=== PATIENT | female | born 1960 | race Caucasian/White ===

== ENCOUNTER 2019-12-08 16:07 | Outpatient (REF) | payer OTHER, SELFPAY ==
--- NOTE | 2019-12-08 16:11 | MM_ITS ---
EXAMINATION: MM SCREENING DIGITAL BREAST TOMOSYNTHESIS, BILATERAL CLINICAL INFORMATION: Screening. Asymptomatic. The lifetime risk of breast cancer based on the Tyrer-Cuzick Model is 10.4%. COMPARISON: Mammography: October 17, 2018 and studies dating back to September 28, 2009 TECHNIQUE: Digital breast tomosynthesis is performed in both the craniocaudal and mediolateral oblique views along with computer-aided detection (CAD). Synthesized 2D images are generated from the tomosynthesis. FINDINGS: The breasts are heterogeneously dense, which may obscure small masses (ACR BI-RADS breast composition Category c). There are no significant masses, abnormal calcifications, or other abnormalities. MM/MM tomosynthesis screening BI IMPRESSION: There are no significant changes from prior study. ASSESSMENT: BI-RADS 1: Negative RECOMMENDATION: Routine annual mammography screening. This patient's information was entered into a reminder system with a target due date for their next mammogram.
== END 2019-12-08 16:08 | disposition home or self-care (01) ==
LOC: HO.MAMMO 16:07
PROVIDERS: PCP Internal Medicine; Visit Provider Internal Medicine
DX: Z12.31 Encounter for screening mammogram for malignant neoplasm of breast (principal)
CPT/HCPCS: 77063; 77067

== ENCOUNTER 2021-02-24 09:42 | Outpatient (REF) | payer OTHER, SELFPAY ==
--- NOTE | ~2021-02-24 | MM_ITS ---
EXAMINATION: MM SCREENING DIGITAL BREAST TOMOSYNTHESIS, BILATERAL CLINICAL INFORMATION: Screening. Asymptomatic. The lifetime risk of breast cancer based on the Tyrer-Cuzick Model is 15%. COMPARISON: Mammography: 12/08/2019, 10/17/2018, 10/08/2017 TECHNIQUE: Digital breast tomosynthesis is performed in both the craniocaudal and mediolateral oblique views along with computer-aided detection (CAD). Synthesized 2D images are generated from the tomosynthesis. FINDINGS: The breasts are heterogeneously dense, which may obscure small masses (ACR BI-RADS breast composition Category c). Parenchymal pattern is similar to prior studies. Breast tissue composition borders on average fibroglandular. Nodular asymmetry mid inner left breast on CC view is stable there is no developing density or interval mass or architectural abnormality in either breast. No abnormal calcifications the axilla and skin contours are unremarkable. No significant changes. MM/MM tomosynthesis screening BI IMPRESSION: No mammographic evidence of malignancy. ASSESSMENT: BI-RADS 2: Benign RECOMMENDATION: Routine annual mammography screening. This patient's information was entered into a reminder system with a target due date for their next mammogram.
== END 2021-02-24 09:43 | disposition home or self-care (01) ==
LOC: HO.MAMMO 09:42
PROVIDERS: Visit Provider Internal Medicine
DX: Z12.31 Encounter for screening mammogram for malignant neoplasm of breast (principal)
CPT/HCPCS: 77063; 77067

== ENCOUNTER 2021-10-29 15:10 | Outpatient (REF) | payer OTHER, SELFPAY ==
--- NOTE | ~2021-10-29 | US_ITS ---
EXAMINATION: US PELVIS CLINICAL INFORMATION: Pelvic pain. COMPARISON: None TECHNIQUE: Ultrasound of the pelvis is performed using both transabdominal and transvaginal transducers along with Doppler. Transvaginal imaging is performed due to inadequate visualization transabdominally. FINDINGS: UTERUS: The uterus is anteverted, anteflexed and measures 7.52 cm in length, 3.18 cm in AP and 3.8 cm in transverse dimension. The double wall endometrial thickness is 0.34 cm. The uterus is smooth in contour and has normal myometrial echogenicity. No visible fibroid. ADNEXA: Both ovaries are visualized. There is normal color flow to the adnexa. There is no ovarian torsion. There is no pelvic ascites or fluid collection. Right ovary measures 1.67 x 0.95 x 1.58 cm and volume 1.31 mL. Left ovary measures 2.04 x 1.98 x 1.34 cm and volume 2.83 mL. There is an anechoic cyst with septation measuring 0.63 x 0.74 x 0.59 cm. US/US pelvic and transvaginal IMPRESSION: Complex cyst left ovary. Right ovary and the uterus is unremarkable.
== END 2021-10-29 15:11 | disposition home or self-care (01) ==
LOC: HO.HMGCX 15:10
PROVIDERS: Visit Provider Registered Nurse Community Health
DX: R10.2 Pelvic and perineal pain (principal)
CPT/HCPCS: 76830; 76856

== ENCOUNTER 2022-03-16 09:58 | Outpatient (REF) | payer OTHER, SELFPAY ==
--- NOTE | ~2022-03-16 | MM_ITS ---
EXAMINATION: MM SCREENING DIGITAL BREAST TOMOSYNTHESIS, BILATERAL CLINICAL INFORMATION: Screening. Asymptomatic. The lifetime risk of breast cancer based on the Tyrer-Cuzick Model is 9.0%. COMPARISON: Mammography: 02/24/2021 and studies going back to 01/07/2012. TECHNIQUE: Digital breast tomosynthesis is performed in both the craniocaudal and mediolateral oblique views along with computer-aided detection (CAD). Synthesized 2D images are generated from the tomosynthesis. FINDINGS: The breasts are heterogeneously dense, which may obscure small masses (ACR BI-RADS breast composition Category c). There is a stable parenchymal pattern of the right breast with no new abnormal dominant mass or suspicious grouping of microcalcifications. Within the deep upper outer aspect of the left breast, there is an approximately 11 x 9 x 7 mm circumscribed density, approximately 6 cm from the nipple for which spot compression view and ultrasound is recommended. About the anterior inferior aspect of the left breast, there is a 6 x 6 mm circumscribed density for which ultrasound is recommended. MM/MM tomosynthesis screening BI IMPRESSION: Two left breast lesions for further evaluation as described. ASSESSMENT: BI-RADS 0: Incomplete - Need additional imaging evaluation. RECOMMENDATION: 1. Additional views of the left breast. 2. Targeted ultrasound if warranted after review of the additional views. 3. Radiology department staff will contact the patient for additional imaging. This patient's information was entered into a reminder system with a target due date for their next mammogram.
== END 2022-03-16 09:59 | disposition home or self-care (01) ==
LOC: HO.MAMMO 09:58
PROVIDERS: Visit Provider Internal Medicine
DX: Z12.31 Encounter for screening mammogram for malignant neoplasm of breast (principal)
CPT/HCPCS: 77063; 77067

== ENCOUNTER 2022-04-16 14:34 | Outpatient (REF) | payer OTHER, SELFPAY ==
--- NOTE | ~2022-04-16 | MM_ITS ---
EXAMINATION: MM DIAGNOSTIC DIGITAL BREAST TOMOSYNTHESIS, LEFT US DIAGNOSTIC ULTRASOUND BREAST, LEFT CLINICAL INFORMATION: Recall from screening for circumscribed partially obscured nodule posterior upper outer left breast and anterior 5:00 left breast. TC score 9%. COMPARISON: Prior mammography exams, most recent 03/16/2022. TECHNIQUE: Digital breast tomosynthesis is performed. 2D images are generated from the tomosynthesis. The following views are obtained: Spot CC, spot ML. Ultrasound left breast is performed using grayscale imaging and color Doppler without and with harmonics. Imaging is targeted to the upper outer and lower outer quadrants. FINDINGS: Mammography: The breasts are heterogeneously dense, which may obscure small masses (ACR BI-RADS breast composition Category c). The additional views demonstrate a benign-appearing smooth partly obscured nodule upper outer quadrant measuring approximately 1 cm in greatest dimension. There is a small adjacent satellite nodule. No architectural abnormality. In addition, there is a benign-appearing circumscribed nodule anterior 5:30 position measuring approximately 0.6 cm in greatest dimension. No architectural abnormality. Ultrasound: There is a simple cyst 2:30 position 7 cm from nipple measuring approximately 0.9 x 0.5 cm. A tiny adjacent satellite simple cyst just under 3 mm present. There is increased through-transmission of sound circumscribed margins and no associated color flow. These correspond to the nodularity mid to posterior upper outer quadrant on mammography. Additional imaging lower outer quadrant demonstrates 0.5 cm simple anechoic cyst 5:00 position measuring 0.6 cm in greatest dimension. Margins are circumscribed and there is increased through-transmission of sound and no color flow. 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 Management: Summary results shared with patient at time of visit. Management plan is for 6-month follow-up left mammography to reassess the benign-appearing mildly complicated cyst likely related to apocrine metaplasia anterior lower outer quadrant. MM/MM tomosynthesis added views L IMPRESSION: 1. Benign simple cysts mid to posterior upper outer quadrant, 0.9 cm, and anterior lower outer left breast, 0.6 cm. 2. 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 ASSESSMENT: BI-RADS 3: Probably Benign RECOMMENDATION: Targeted left breast ultrasound in 6 months. This patient's information was entered into a reminder system with a target due date for their next mammogram.
== END 2022-04-16 14:35 | disposition home or self-care (01) ==
LOC: HO.MAMMO 14:34
PROVIDERS: PCP Internal Medicine; Visit Provider Internal Medicine
DX: N63.11 Unspecified lump in the right breast, upper outer quadrant (principal); N63.14 Unspecified lump in the right breast, lower inner quadrant
CPT/HCPCS: 76642; 77061; 77065

== ENCOUNTER 2022-05-09 15:32 | Outpatient (REF) | payer OTHER, SELFPAY ==
--- NOTE | ~2022-05-09 | XR_ITS ---
EXAMINATION: XR FEMUR, LEFT CLINICAL INFORMATION: Left posterior thigh pain. COMPARISON: None available. TECHNIQUE: Left femur is imaged in 4 views. FINDINGS: Normal bony mineralization. No fracture, dislocation, destructive process. No suprapatellar effusion. Hoffa's fat pad appears normal. The left hip joint shows no narrowing or erosive change. There is whiskering from the lateral left ilium. The left SI joint is unremarkable. There is borderline degenerative change pubic symphysis. Oval mineralization 0.8 cm adjacent to the left ischial tuberosity. There is no periostitis or erosive change. The calcification is likely associated with calcific tendinosis in region of the hamstring. XR/XR femur LT 2V IMPRESSION: -Oval mineralization 0.8 cm adjacent to left ischial tuberosity, likely related to calcific tendinosis left hamstring. -Normal femur. Unremarkable left hip joint.
--- NOTE | ~2022-05-09 | US_ITS ---
EXAMINATION: US VENOUS ULTRASOUND WITH DOPPLER LOWER EXTREMITY, LEFT CLINICAL INFORMATION: Pain left leg. Assess for occult DVT. COMPARISON: None available. TECHNIQUE: Ultrasound of the deep veins is performed from the hip to the calf with compression sonography and color and pulse Doppler assessment. Spectral analysis with color-flow imaging is performed. FINDINGS: There is normal venous compression and respiratory variation and augmented flow. The visualized common femoral vein, superficial femoral vein, profunda femoral vein, popliteal vein, and the trifurcation region shows no evidence of deep venous thrombosis. No visible popliteal fossa cyst. US/US venous duplex LE LT IMPRESSION: No DVT demonstrated in the left lower extremity.
--- NOTE | ~2022-05-09 | XR_ITS ---
EXAMINATION: XR ELBOW, LEFT CLINICAL INFORMATION: Left elbow pain. COMPARISON: None available. TECHNIQUE: Left elbow is imaged in 3 views. FINDINGS: Normal bony mineralization. No fracture, dislocation, or arthropathy. No joint narrowing or erosive change or elbow capsular effusion. There is spurring from the epicondyles, slightly greater on the medial side. Punctate olecranon spur also noted. XR/XR elbow LT min 3V IMPRESSION: -No joint narrowing, erosive change, or capsular effusion. -Spurring medial and lateral epicondyles. Tiny olecranon spur.
== END 2022-05-09 15:33 | disposition home or self-care (01) ==
LOC: HO.US 15:32
PROVIDERS: PCP Internal Medicine; Visit Provider Emergency Medicine
DX: M79.652 Pain in left thigh (principal); M25.522 Pain in left elbow
CPT/HCPCS: 73080; 73552; 93971

== ENCOUNTER 2022-10-22 14:52 | Outpatient (REF) | payer SELFPAY ==
--- NOTE | ~2022-10-22 | US_ITS ---
EXAMINATION: US DIAGNOSTIC ULTRASOUND BREAST, LEFT CLINICAL INFORMATION: 6 month follow-up mildly complicated cyst left breast 5:00 axis, 3 cm from the nipple.. COMPARISON: 04/16/2022. TECHNIQUE: Ultrasound of the breast is performed with real-time tejada scale imaging and color Doppler. Attention was paid to the 5:00 axis. FINDINGS: There is a stable and unchanged oval circumscribed nonvascular mildly complicated cyst with low-level internal echoes, good through transmission, measuring a stable 5 x 4 x 4 mm. In addition there is a slightly larger simple cyst more laterally, also unchanged. Results were discussed with the patient at time of visit. US/US breast LT limited mamm only IMPRESSION: Stable and unchanged almost certainly benign mildly complicated cyst measuring 5 x 4 x 4 mm in the left breast at the 5:00 axis, 3 cm from the nipple. To be cautious, an additional 6 month interval follow-up targeted left ultrasound is recommended when the patient is due for bilateral mammography. ASSESSMENT: BI-RADS 3: Probably Benign RECOMMENDATION: Diagnostic left targeted ultrasound in 6 months.
== END 2022-10-22 14:53 | disposition home or self-care (01) ==
LOC: HO.MAMMO 14:52
PROVIDERS: Visit Provider Internal Medicine
DX: N60.02 Solitary cyst of left breast (principal)
CPT/HCPCS: 76642

== ENCOUNTER → 2022-10-22 15:30 | Outpatient (BNV) | payer SELFPAY | PROVIDERS: Visit Provider Radiology Diagnostic Radiology | DX: N60.02 Solitary cyst of left breast (principal) | CPT/HCPCS: 76642 ==

== ENCOUNTER 2023-05-09 14:52 | Outpatient (REF) | payer MEDICAID, SELFPAY ==
--- NOTE | ~2023-05-09 | MM_ITS ---
EXAMINATION: MM DIAGNOSTIC DIGITAL BREAST TOMOSYNTHESIS, BILATERAL US BREAST LIMITED, LEFT MAMMOGRAPHY: CLINICAL INFORMATION: Patient here for screening bilaterally. Also, six-month follow-up left ultrasound for probably benign mildly complicated cyst measuring 5 mm in the left breast 5:00 axis, 3 cm from the nipple. COMPARISON: Mammography: 04/16/2022, 03/16/2022, 02/24/2021, 12/08/2019, and dating back to 2017. TECHNIQUE: Digital breast tomosynthesis is performed in both the craniocaudal and mediolateral oblique views along with computer-aided detection (CAD). Synthesized 2D images are generated from the tomosynthesis. FINDINGS: The breasts are heterogeneously dense, which may obscure small masses (ACR BI-RADS breast composition Category c). Again noted, there are bilateral numerous oval and round circumscribed masses, similar to the prior examinations, consistent with waxing and waning cysts. The most prominent is on the left breast at 3:00, measuring approximately 1 cm in diameter. This is unchanged. The oval 5 mm mass at 5:00 axis left breast is also unchanged, known to represent a complicated cyst. This will be evaluated by ultrasound for the second time. Otherwise, There are no suspicious masses, suspicious grouped calcifications, or areas of architectural distortion in either breast. The parenchymal pattern is stable from prior exams. There are no skin or axillary abnormalities. ULTRASOUND: CLINICAL INFORMATION: 6 month Follow-up probably benign mildly complicated cyst left breast 5:00 axis, 3 cm from the nipple. COMPARISON: 10/22/2022. TECHNIQUE: Targeted sonographic evaluation was performed using a high frequency linear transducer. Attention was given to the 5:00 axis left breast. Selected archived documentation. FINDINGS: LEFT BREAST: Again demonstrated within the left breast at 5:00 axis, 2 cm from the nipple, is a minimally complicated cyst measuring 6 x 4 x 5 mm, unchanged allowing for differences in measuring technique. There are a few specular echoes internally. It is otherwise simple in appearance. It is probably benign. There are abutting adjacent more superomedial simple cysts. These are benign. There are no suspicious findings left breast. MM/MM tomosynthesis diagnostic BI IMPRESSION: -There are no findings in either breast suspicious for malignancy. -There are stable waxing and waning cysts in both breasts. Left breast ultrasound demonstrates no significant interval change in the 6 x 4 x 5 mm minimally complicated cyst at 5:00, 3 cm from the nipple. We will follow this in one year to assure 2 year stability and to establish benignity. OVERALL ASSESSMENT: Mammography: BI-RADS 3 - Probably benign finding(s) - 12 month follow-up suggested Ultrasound: BI-RADS 3 - Probably benign finding(s) - 12 month follow-up suggested RECOMMENDATION: 12 month diagnostic follow up This patient's information was entered into a reminder system with a target due date for their next mammogram.
== END 2023-05-09 14:53 | disposition home or self-care (01) ==
LOC: HO.MAMMO 14:52
PROVIDERS: PCP Internal Medicine; Visit Provider Internal Medicine
DX: R92.2 Inconclusive mammogram (principal)
CPT/HCPCS: 76642; 77062; 77066

== ENCOUNTER → 2023-05-09 15:00 | Outpatient (BNV) | payer MEDICAID, SELFPAY | PROVIDERS: PCP Internal Medicine; Visit Provider Radiology Diagnostic Radiology | DX: N60.11 Diffuse cystic mastopathy of right breast (principal); N60.12 Diffuse cystic mastopathy of left breast; R92.333 Mammographic heterogeneous density, bilateral breasts | CPT/HCPCS: 76642; 77062; 77066 ==

== ENCOUNTER 2023-05-14 14:07 | Outpatient (REF) | payer MEDICAID, SELFPAY ==
[2023-05-19 22:33] LABS: C. trachomatis RNA TMA NOT DETECTED (NOT DETECTED); N. gonorrhoeae RNA TMA NOT DETECTED (NOT DETECTED); Trichomonas (NAAT) NOT DETECTED (NOT DETECTED)
[2023-05-29 23:29] LABS: HPV mRNA E6/E7 rflx Not Detected (Not Detected)
== END 2023-05-14 14:08 | disposition home or self-care (01) ==
LOC: HO.HHCLNP 14:07
PROVIDERS: Visit Provider Internal Medicine
DX: Z12.4 Encounter for screening for malignant neoplasm of cervix (principal); Z11.51 Encounter for screening for human papillomavirus (HPV)
CPT/HCPCS: 36415; 87491; 87591; 87624; 87661; 88142

== ENCOUNTER 2023-05-27 08:19 | Outpatient (REF) | payer MEDICAID, SELFPAY ==
[2023-05-27 09:10] LABS: Estimated Average Glucose 117 mg/dL; Hemoglobin A1c % 5.7 % (<6.0)
[2023-05-27 10:12] LABS: Anion Gap 12 (12-20); Blood Urea Nitrogen 13 mg/dL (9-16); Calcium 9.5 mg/dL (8.4-10.2); Carbon Dioxide 26 mmol/L (22-29); Chloride 108 mmol/L (96-108); Cholesterol 215 mg/dL (<200); Estimated Glomerular Filt Rate > 60; Glucose Random 96 mg/dL (60-115); HDL Cholesterol 53 mg/dL (>40); LDL Cholesterol Calculated 129 mg/dL (<100); Potassium 3.9 mmol/L (3.3-5.1); Sodium 142 mmol/L (135-145); Triglycerides 169 mg/dL (<150)
== END 2023-05-27 08:20 | disposition home or self-care (01) ==
LOC: HO.LAB 08:19
PROVIDERS: PCP Internal Medicine; Visit Provider Internal Medicine
DX: I10 Essential (primary) hypertension (principal)
CPT/HCPCS: 36415; 80048; 80061; 83036

== ENCOUNTER 2023-11-10 09:36 | Outpatient (REF) | payer MEDICAID, SELFPAY ==
--- NOTE | ~2023-11-10 | MM_ITS ---
EXAMINATION: MM DIAGNOSTIC DIGITAL BREAST TOMOSYNTHESIS, LEFT US BREAST LIMITED, LEFT MAMMOGRAPHY: CLINICAL INFORMATION: Patient states palpable abnormality 2-3:00 left breast, although states has currently resolved. Previous ultrasound left breast 04/16/2022 demonstrated a 2:00 axis bilobed simple cyst in this region. COMPARISON: Mammography: 11/10/2023, 05/09/2023, 04/16/2022, 04/13/2022, and exams dating back to 2014. 10/22/2022, 10/22/2022, 05/09/2023 left breast ultrasound TECHNIQUE: Digital left breast tomosynthesis is performed in both the craniocaudal and mediolateral oblique views along with computer-aided detection (CAD). Synthesized 2D images are generated from the tomosynthesis. FINDINGS: The breasts are heterogeneously dense, which may obscure small masses (ACR BI-RADS breast composition Category c). Mammography demonstrates palpable marker placed in the approximate 2-3 o'clock axis left breast, marking the palpable area of concern. Directly subjacent is a circumscribed mass in the 2-3 o'clock axis, similar but slightly smaller when compared with prior exams. This will be again evaluated with ultrasound. There are a few additional small circumscribed masses in the left breast, of which the 5:00 axis anterior circumscribed mass represents a complicated cyst which is being followed (diagnostic ultrasound due in April,). It is stable mammographically. There are no suspicious abnormalities in the left breast. ULTRASOUND: CLINICAL INFORMATION: As above. Palpable focus concern left breast 2-3 o'clock axis. COMPARISON: As above. TECHNIQUE: Targeted sonographic evaluation left breast was performed using a high frequency linear transducer. Attention to the upper outer quadrant was given to include the region of palpable concern. Selected archived documentation. FINDINGS: LEFT BREAST: In the location of the previously seen bilobed simple cyst, 3:00 axis, 6 cm from the nipple, there is now a unilocular simple cyst measuring 0.6 x 0.3 x 0.5 cm. This appears to correlate with the palpable focus of concern and is benign. There are no suspicious abnormalities. MM/MM tomosynthesis diagnostic LT IMPRESSION: -There are no findings suspicious for malignancy left breast. -There are stable benign findings. -Palpable focus correlates with a benign 6 mm simple cyst at the 3:00 axis, 6 cm from the nipple. -Recommend the patient resume routine annual screening mammography, in April 2024. At that time the patient will be due for one year ultrasound follow-up of the left breast 5:00 complicated cyst. OVERALL ASSESSMENT: Mammography: BI-RADS 2 - Benign Findings Ultrasound: BI-RADS 2 - Benign Findings RECOMMENDATION: 1 year F/U This patient's information was entered into a reminder system with a target due date for their next mammogram. Electronically signed by: Adalid Angeles MD 11/10/2023 11:48 AM EDT
== END 2023-11-10 09:37 | disposition home or self-care (01) ==
LOC: HO.MAMMO 09:36
PROVIDERS: PCP Internal Medicine; Visit Provider Internal Medicine
DX: N64.4 Mastodynia (principal)
CPT/HCPCS: 76642; 77061; 77065

== ENCOUNTER → 2023-11-10 11:00 | Outpatient (BNV) | payer MEDICAID, SELFPAY | PROVIDERS: PCP Internal Medicine; Visit Provider Radiology Diagnostic Radiology | DX: N63.25 Unspecified lump in the left breast, overlapping quadrants (principal) | CPT/HCPCS: 76642; 77061; 77065 ==

== ENCOUNTER 2024-05-11 09:48 | Outpatient (REF) | payer MEDICAID, SELFPAY ==
--- NOTE | ~2024-05-11 | MM_ITS ---
EXAMINATION: MM DIAGNOSTIC DIGITAL BREAST TOMOSYNTHESIS, BILATERAL Limited left breast ultrasound. CLINICAL INFORMATION: 18 month follow-up for solid mass versus complicated cyst in the left breast on ultrasound at 5:00. COMPARISON: Mammography: Comparison is made with relevant prior exams. TECHNIQUE: Digital breast mammography with tomosynthesis is performed in both the craniocaudal and mediolateral oblique views along with computer-aided detection (CAD). FINDINGS: The breasts are heterogeneously dense, which may obscure small masses (ACR BI-RADS breast composition Category c). Bilateral circumscribed oval masses which wax and wane consistent with benign fibrocystic changes. No suspicious calcifications masses or other abnormal findings. Targeted color Doppler ultrasound scanning at 5:00 area today labeled 4:00 2 cm from nipple again demonstrates a hypoechoic oval circumscribed solid mass versus complicated cyst slightly decreased in size compared with priors today measuring 4 x 4 x 4 mm peripheral not significantly changed from the prior area at 5:00 2 cm from the nipple dating back to April 2022 more than 2 years and therefore benign. Results are provided to the patient at time of visit by the technologist. MM/MM tomosynthesis diagnostic BI IMPRESSION: Bilateral circumscribed oval masses which wax and wane consistent with benign fibrocystic changes. Solid mass versus complicated cyst at 5:00 today labeled 4:00 stable for more than 2 years and therefore benign. ASSESSMENT: BI-RADS BI-RADS 2 - Benign Findings RECOMMENDATION: 1 year F/U This patient's information was entered into a reminder system with a target due date for their next mammogram. Electronically signed by: Dilia Hernández DO 05/11/2024 11:13 AM EDT
--- OUTSIDE RECORDS SUMMARY | 2024-05-11 11:28 | XMS_ITS | Clinical Summary ---
Author Organization [employer] Address [address] [facility] [address] [place] [address] Care Team Providers Care Digital Solution Architect Name Role Phone Jinny Guzman MD Primary Care Provide r Allergies No known active allergies Medications omeprazole (PriLOSEC) [address] capsule Take 1 capsule by mouth. Everyday before a meal 7 Active ibuprofen 800 MG tablet Take 1 tablet by mouth every 8 (eight) hours. 7 Active acetaminophen (Tylenol 8 Hour) 650 MG ER tablet Take 2 tablets (1,300 mg) by mouth every 8 (eight) hours. 40 tablet 3 Active ibuprofen 400 MG tablet Take 1 tablet (400 mg) by mouth every 6 (six) hours if needed for moderate pain or fever for up to 30 doses. 30 tablet 3 Active Blood Pressure Monitor kitIndications:En counter for preventative adult health care examination Use as directed 3x/week 1 kit 3 Active [facility] D3 25 MCG (1000 UT) capsule TAKE 1 CAPSULE BY MOUTH EVERY DAY 30 capsule 3 3 Active amLODIPine (Norvasc) 2.5 MG tabletIndications :Primary hypertension TAKE 2 TABLETS BY MOUTH EVERY DAY IN THE MORNING 180 tablet 4 Active minoxidil (Loniten) 2.5 MG tablet Take 1 tablet (2.5 mg) by mouth Once per day. 30 tablet 11 4 08/06/19 25 Active atorvastatin (Lipitor) 20 MG tabletIndications :Primary hypertension Take 1 tablet (20 mg) by mouth Once per day. 30 tablet 11 4 11/25/19 25 Active ketoconazole (NIZOral) 2 % shampoo APPLY TOPICALLY TWICE A WEEK DIRECTED 120 mL 1 4 Active amLODIPine (Norvasc) 2.5 MG tabletIndications :Primary hypertension TAKE 2 TABLETS BY MOUTH EVERY DAY 180 tablet 1 5 Active Active Problems Problem Noted Date Diagnosed Date Benign paroxysmal positional vertigo due to bilateral vestibular disorder 11/25/2023 Right tennis elbow 08/26/2023 Vestibular disorder 08/26/2023 Encounter for Papanicolaou s mear for cervical cancer screening 05/14/2023 Assessment & Plan (05/14/2023 10:57 AM EDT): PAP smear and pelvic exam done Patient will be contacted with results Left elbow pain 06/24/2022 Assessment & Plan (11/25/2023 4:06 PM EDT): Referral will be provided Primary hypertension 06/24/2022 Assessment & Plan (11/25/2023 4:08 PM EDT): Maintenance: BMP: up to date Lipid Panel: up to date ASCVD Risk: 7.7% I will start her on atorvastatin 20mg daily EKG: Obtain baseline at f/u - Aerobic exercise to reduce BP. Initial goal of 30 min walk 3-5x/week. Increase as tolerated. - low-sodium diet (goal: <2g/day) and heart healthy diet such as DASH to reduce BP and prevent ASCVD. - Home BP monitoring 1-2 x day with goal of <140/90. - Seek immediate medical attention for chest pain, palpitations, SOB, syncope, or sudden changes in mental status. - Do not change or discontinue current prescriptions without first consulting health care provider Assessment & Plan (08/26/2023 2:22 PM EDT): - Aerobic exercise to reduce BP. Initial goal of 30 min walk 3-5x/week. Increase as tolerated. - low-sodium diet (goal: <2g/day) and heart healthy diet such as DASH to reduce BP and prevent ASCVD. - Home BP monitoring 1-2 x day with goal of <140/90. - Seek immediate medical attention for chest pain, palpitations, SOB, syncope, or sudden changes in mental status. - Do not change or discontinue current prescriptions without first consulting health care provider Assessment & Plan (05/14/2023 10:58 AM EDT): - Aerobic exercise to reduce BP. Initial goal of 30 min walk 3-5x/week. Increase as tolerated. - low-sodium diet (goal: <2g/day) and heart healthy diet such as DASH to reduce BP and prevent ASCVD. - Home BP monitoring 1-2 x day with goal of <140/90. - Seek immediate medical attention for chest pain, palpitations, SOB, syncope, or sudden changes in mental status. - Do not change or discontinue current prescriptions without first consulting health care provider Assessment & Plan (03/10/2023 4:49 PM EST): Maintenance: BMP: up to date Lipid Panel: up to date ASCVD Risk: Calculate pending updated labs - Aerobic exercise to reduce BP. Initial goal of 30 min walk 3-5x/week. Increase as tolerated. - low-sodium diet (goal: <2g/day) and heart healthy diet such as DASH to reduce BP and prevent ASCVD. - Home BP monitoring 1-2 x day with goal of <140/90. - Seek immediate medical attention for chest pain, palpitations, SOB, syncope, or sudden changes in mental status. - Do not change or discontinue current prescriptions without first consulting health care provider Assessment & Plan (06/24/2022 3:39 PM EDT): Maintenance: BMP: ordered today Lipid Panel: ordered today ASCVD Risk: Calculate pending updated labs EKG: Obtain baseline at f/u - Aerobic exercise to reduce BP. Initial goal of 30 min walk 3-5x/week. Increase as tolerated. - low-sodium diet (goal: <2g/day) and heart healthy diet such as DASH to reduce BP and prevent ASCVD. - Home BP monitoring 1-2 x day with goal of <140/90. - Seek immediate medical attention for chest pain, palpitations, SOB, syncope, or sudden changes in mental status. 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 Anxiety state 07/01/2011 Alopecia 07/01/2011 Encounters Date Type Department Care Team Description 05/11/2024 Orders Only [facility] [address] [place] [address] Jinny Guzman MD 04/29/2024 Outside Procedure [facility] [address] [place] [address] MartinezJamesn, OD Presbyopia (Primary Dx) 04/27/2024 1:15 PM EDT Office Visit [facility] [address] [place] [address] James Henriquezn, OD Hyperopia of both eyes (Primary Dx) 04/23/2024 Population Health Risk Score [facility] Department [address] [phone] Provider, Population Health Generic 04/08/2024 Refill [facility] [address] [place] [address] Jinny Guzman MD Primary hypertension 03/15/2024 Telephone [facility] [address] [place] [address] Sharda Benitez MA MAY RECALL from Last 3 Months Immunizations Name Administration Dates Next Due Tdap 09/05/2022 Zoster, Recombinant 05/12/2023,03/10/2023 Social History Tobacco Use Types Packs/Day Years Used Date Smoking Tobacco: Never Passive Smoke Exposure: Never Smokeless Tobacco: Never Tobacco Cessation:Counseling Given: Not Answered Alcohol Use Standard Drinks/Week Comments Never 0 (1 standard drink = 0.6 oz pur e alcohol) Depression Answer Date Recorded Patient Health Questionnaire-9 Score 0 08/26/2023 Patient Health Questionnaire-9 Score 0 08/26/2023 Last PHQ-9: Questionnaire Data Not on file 0 08/26/2023 Housing Stability Answer Date Recorded What is your housing situation today? I have maxine williamson 08/26/[address] you li ve. Do you have problems with any of the following? None of the above 08/26/2023 Food Insecurity Answer Date Recorded Within the past 12 months, y ou worried that your food would run out before you got money to buy more: Never True 08/26/2023 Within the past 12 months,th e food you bought just didn't last and you didn't have enough money to get more: Never True Transportation Answer Date Recorded In the past 12 months, has l ack of transportation kept you from medical appts, meetings, work or from getting things needed for daily living? No 08/26/2023 Utilities Answer Date Recorded In the past 12 months, has t he electric, gas, oil or water company threatened to shut off services in your home? No 08/26/2023 Depression Answer Date Recorded Patient Health Questionnaire-2 Score 0 08/26/2023 Internet Access Answer Date Recorded Internet Access Q1 No 10/13/2023 Internet Access Q2 I do not want or need it 03/2023 Comments Unknown Sex and Gender Information Value Date Recorded Sex Assigned at Female 12/10/2021 10:18 AM EDT Legal Sex Female 10:18 AM EDT Gender Identity Female 12/10/2021 10:18 AM EDT Sexual Orientation Choose not to disclose 2021 10:18 AM EDT Last Filed Vital Signs Vital Sign Reading Time Taken Comments Blood Pressure 129/73 11/25/2023 3:15 PM EDT Pulse 65 11/25/2023 3:15 PM EDT Temperature 36 ??C (96.8 ??F) 11/25/2023 3:15 PM EDT Respiratory Rate 16 11/25/2023 3:15 PM EDT Oxygen Saturation 100% 11/25/2023 3:15 PM EDT Inhaled Oxygen Concentration - - Weight 64 kg (141 lb) 11/25/2023 3:15 PM EDT Height 160 cm (5' 3 ) 11/25/2023 3:15 PM EDT Body Mass Index 24.98 11/25/2023 3:15 PM EDT Plan of Treatment Upcoming Encounters Date Type Department Care Team (Late st Contact Info) Description 05/11/2024 3:30 PM EDT Office Visit [facility] [address] [place] [address] Jinny Gumzan MD [address] [place] [address] Health Maintenance Due Date Last Done Comments CT Colonography 1960 Colonoscopy 1960 FIT 1960 FOBT 1960 HIV Screening 1960 Sigmoidoscopy 1960 Hepatitis C Screening 12/31/1977 Pneumococcal Vaccine: 50+ Years (1 of 1 - PCV) 12/31/2009 COVID-19 Vaccine ( season) 2023 06/19/2020, 05/25/2020 Influenza Vaccine (#1) 2023 Diabetes: Hemoglobin A1C 05/26/2024 05/27/2023, 03/13 Alcohol/Substance Use Screening 08/25/2024 08/26/2023 Depression Screening 08/25/2024 08/26/2023, 08/26/19 24 SDOH Screening 08/25/2024 08/26/2023 Diagnostic Breast Imaging 11/09/20242024, 11/10/2023, 11/10/2023, Additional history exists Mammogram 11/09/2024 05/11/2024, 10/13, 11/10/2023, Additional history exists Tobacco Screening 2025 01/02/2024 Colorectal Cancer Screening 04/01/2026 FIT DNA/Cologuard 04/01/2026 04/01/2023 Cervical Cancer Screening 05/13/2028 HPV/Cotest 05/13/2028 05/14/2023, 07/31/2018 Pap Smear 05/13/2028 05/14/2023, 04/0 04/2023, 08/02/2018 Lipid Panel 05/26/2028 05/27/2023, 03/26/2021 DTaP/Tdap/Td Vaccines (2 - Td or Tdap) 09/05/2032 09/05/2022 RSV Patients and Patients Aged 60 years or older (1 - 1-dose 75+ series) 12/31/2034 Zoster Vaccines Completed 05/12/2023, 03/10/2023 HIB Vaccines Aged Out No longer eligi ble based on patient's age to complete this topic HPV Vaccines Aged Out No longer eligi ble based on patient's age to complete this topic Hepatitis A Vaccines Aged Out No long er eligible based on patient's age to complete this topic Hepatitis B Vaccines Aged Out No long er eligible based on patient's age to complete this topic IPV Vaccines Aged Out No longer eligi ble based on patient's age to complete this topic Meningococcal Vaccine Aged Out No lex jacinta eligible based on patient's age to complete this topic RSV under 20 months Aged Out No longe r eligible based on patient's age to complete this topic Rotavirus Vaccines Aged Out No longer eligible based on patient's age to complete this topic Procedures Procedure Name Priority Date/Time Associated Diagnosis Comments BI MAMMOGRAM DIAGNOSTIC TOMOSYNTHESIS BILATERAL Routine 05/11/2024 10:00 AM EDT HEMOGLOBIN A1C Routine 05/27/2023 8:45 AM EDT Primary hypertension LIPID PANEL, STANDARD Routine 05/27/2023 8:45 AM EDT Primary hypertension IMAGE-GUIDED PAP W/AGE BASED SCR,W/CT/NG/TRICH Routine 05/14/2023 10:55 AM EDT Encounter for Papanicolaou smear for cervical cancer screening HPV MRNA E6/E7 REFLEX TO HPV 16, 18/45 Routine 05/14/2023 12:00 AM EDT LAB COLOGUARD?? COLON CANCER SCREEN Routine 04/01/2023 8:30 AM EST Colon cancer screening from Last 3 Months or Most Recently Relevant to Health Maintenance Results * BI Mammogram Diagnostic Tomosynthesis Bilateral (05/11/2024 10:00 AM EDT) Anatomical Region Laterality Modality Breast Bilateral Mammography 05/11/2024 10:0 0 AM EDT Narrative 05/11/2024 11:16 AM EDT ? [facility] ? [address] ?[place] [address] ?[phone] ? Mammography Report ? Signed ? Patient: Francis,Luz Maria ?MR#: [id number] ?? 08 ? : 1960 ?Acct:[id number] ? Age/Sex: 64 / F ?ADM Date: 05/11/24 ? Loc: HO.MAMMO ? Attending Dr: Jinny Dillard MD ? Ordering Physician: Jinny Guzman MD ?Results: ?? 2Benign Findings ? Date of Service: 05/11/24 ?Follow Up: 1 Year From Orig ?? inal Mammogram ? Procedure(s): MM tomosynthesis diagnostic BI ?? Accession Number(s): [id number] ? cc: Jinny Guzman MD ? EXAMINATION: ?? MM DIAGNOSTIC DIGITAL BREAST TOMOSYNTHESIS, BILATERAL ?? Limited left breast ultrasound. ? CLINICAL INFORMATION: ? 18 month follow-up for solid mass versus complicated cyst in the left ?? breast on ultrasound at 5:00. ? COMPARISON: ?? Mammography: Comparison is made with relevant prior exams. ? TECHNIQUE: ?? Digital breast mammography with tomosynthesis is performed in both the ?? craniocaudal and mediolateral oblique views along with computer-aided ?? detection (CAD). ? FINDINGS: ?? The breasts are heterogeneously dense, which may obscure small masses ?? (ACR BI-RADS breast composition Category c). ?? Bilateral circumscribed oval masses which wax and wane consistent with ?? benign fibrocystic changes. ?? No suspicious calcifications masses or other abnormal findings. ? Targeted color Doppler ultrasound scanning at 5:00 area today labeled ?? 4:00 2 cm from nipple again demonstrates a hypoechoic oval ?? circumscribed solid mass versus complicated cyst slightly decreased in ?? size compared with priors today measuring 4 x 4 x 4 mm peripheral not ?? significantly changed from the prior area at 5:00 2 cm from the nipple ?? dating back to April 2022 more than 2 years and therefore benign. ? Results are provided to the patient at time of visit by the ?? technologist. ? MM/MM tomosynthesis diagnostic BI ?? IMPRESSION: ?? Bilateral circumscribed oval masses which wax and wane consistent with ?? benign fibrocystic changes. ?? Solid mass versus complicated cyst at 5:00 today labeled 4:00 stable ?? for more than 2 years and therefore benign. ? ASSESSMENT: ? BI-RADS BI-RADS 2 - Benign Findings ? RECOMMENDATION: ?? 1 year F/U ? This patient's information was entered into a reminder system with a ?? target due date for their next mammogram. ? Electronically signed by: ??Dilia Hernández DO ??05/11/2024 11:13 AM EDT ?? RP ? Dictated By: ?Dilia Hernández DO ? Signed By: ?<Electronically signed by Dilia Hernández, DO in OV> ? 05/11/24 1113 ? DD/ 1000 ? TD/TT: 05/11/24 1019 ? Health Services Information Specialist: ? Procedure Note Barry Sullivan - 05/11/2024 [facility] [address] [place] [address] [place] [address] Mammography Report Signed Patient: Raleigh Blanco#: [id number] [birth year] : 1960Acct:[id number] Age/Sex: 64 / FADM Date: 05/11/24 Loc: HO.MAMMO Attending Dr: Jinny Dillard MD Ordering Physician: Jinny Guzman MDResults: 2Benign Findings Date of Service: 05/11/24Follow Up: 1 Year From [facility] Mammogram Procedure(s): MM tomosynthesis diagnostic BI Accession Number(s): [id number] cc: Jinny Guzman MD EXAMINATION: MM DIAGNOSTIC DIGITAL BREAST TOMOSYNTHESIS, BILATERAL Limited left breast ultrasound. CLINICAL INFORMATION: 18 month follow-up for solid mass versus complicated cyst in the left breast on ultrasound at 5:00. COMPARISON: Mammography: Comparison is made with relevant prior exams. TECHNIQUE: Digital breast mammography with tomosynthesis is performed in both the craniocaudal and mediolateral oblique views along with computer-aided detection (CAD). FINDINGS: The breasts are heterogeneously dense, which may obscure small masses (ACR BI-RADS breast composition Category c). Bilateral circumscribed oval masses which wax and wane consistent with benign fibrocystic changes. No suspicious calcifications masses or other abnormal findings. Targeted color Doppler ultrasound scanning at 5:00 area today labeled 4:00 2 cm from nipple again demonstrates a hypoechoic oval circumscribed solid mass versus complicated cyst slightly decreased in size compared with priors today measuring 4 x 4 x 4 mm peripheral not significantly changed from the prior area at 5:00 2 cm from the nipple dating back to April 2022 more than 2 years and therefore benign. Results are provided to the patient at time of visit by the technologist. MM/MM tomosynthesis diagnostic BI IMPRESSION: Bilateral circumscribed oval masses which wax and wane consistent with benign fibrocystic changes. Solid mass versus complicated cyst at 5:00 today labeled 4:00 stable for more than 2 years and therefore benign. ASSESSMENT: BI-RADS BI-RADS 2 - Benign Findings RECOMMENDATION: 1 year F/U This patient's information was entered into a reminder system with a target due date for their next mammogram. Electronically signed by: Dilia Hernández DO 05/11/2024 11:13 AM EDT Dictated By: Dilia Hernández DO Signed By: <Electronically signed by Dilia Hernández DO in OV> 05/11/24 1113 DD/ 1000 TD/TT: 05/11/24 1019 Health Services Information Specialist: us Jinny Dillard MD IMG BI PROCEDURES Fin al Result * Hemoglobin A1c (05/27/2023 8:45 AM EDT) Hemoglobin A1c 5.7 <6.0 % [facility] Comment:Hemoglobin A1C Refer ence Range Adults: 4.8 - 6.0 % Non diabetic: < 6.0 % Goal: < 7.0 %Additional Action Suggested: > 8.0 %Note: Hemoglobin A1c results are invalid for patients with abnormal amounts of HbF. Blood transfusions may impact the HbA1c concentration in the patient sample. Estimated Average Glucose 117 mg/dL [facility] Comment:eAG = Estimated ave rage glucose which is %A1C expressed asaverage glucose, using the formula of the B9Y-[id number] Glucose study (ADAG), Diabetes Care, Vol.31,#8,Sep. 2007 Blood Venous blood specimen / Unknown 05/27/2023 8:45 AM EDT 05/27/2023 8:45 AM EDT us Jinny Dillard MD LAB BLOOD ORDERABLES Final Result Performing Organization Address City/State/[facility] Co de Phone Number [facility] [address] [place] [phone] * (ABNORMAL) Lipid Panel, Standard (05/27/2023 8:45 AM EDT) Triglycerides 169(H) <150 mg/dL [facility] Comment:Desirable Triglyceri de: less than 150 mg/dLBorderline High Triglyceride 150-199 mg/dLHigh Triglyceride: 200-499 mg/dLVery High Triglyceride: greater than or equal to 5OO mg/dL Cholesterol 215(H) <200 mg/dL [facility] Comment:Desirable Cholestero l: less than 200 mg/dLBorderline High Cholesterol: 200-239 mg/dLHigh Cholesterol: greater than 239 mg/dL LDL Cholesterol Calculated 129(H) <100 mg/dL [facility] Comment:Desirable LDL: less than 100 mg/dLNear Optimal/Above Optimal LDL: 110- 129 mg/dLBorderline High LDL: 130-159 mg/dLHigh LDL: 160-189 mg/dLVery High LDL: greater than or equal to 190 mg/dL HDL Cholesterol 53 >40 mg/dL [facility] Comment:Desirable HDL: great er than 40 mg/dL Note: This HDL assay may give artificially low results in patients with liver disease. Blood Venous blood specimen / Unknown 05/27/2023 8:45 AM EDT 05/27/2023 8:45 AM EDT us Jinny Dillard MD LAB BLOOD ORDERABLES Final Result Performing Organization Address [facility] Co de Phone Number [facility] [address] [place] [address] [phone] * Image-Guided Pap with Age-Based Screening??with CT/NG,??Trichomonas (05/14/2023 10:55 AM EDT) Trichomonas (NAAT) NOT DETECTED NOT DETECTED [facility] Comment:The analytical perfo rmance characteristics of thisassay have been determined by [employer]. Themodifications have not been cleared or approved bythe FDA. This assay has been validated pursuant to theCLIA regulations and is used for clinical purposes.For additional information, please refer tohttp://education.5 CUPS and some sugar.[employer]/faq/Trichomonastma(This link is being provided for information/educational purposes only.)THIS TEST WAS PERFORMED AT:[employer] [place] [phone] MORRISON MD CTNG Ref Lab NOT DETECTED NOT DETECTED [facility] NG Ref Lab NOT DETECTED NOT DETECTED [facility] Pap Vial Vaginal structure / Unknown 05/14/2023 10:55 AM EDT 05/15/2023 6:30 AM EDT us Jinny Dillard MD LAB CYTOLOGY ORDERABL ES Final Result Performing Organization Address [facility]/ZIP Co de Phone Number [facility] [address] [place] [address] [phone] * HPV mRNA E6/E7 w/Reflex to HPV Genotypes 16, 18/45 (05/14/2023 12:00 AM EDT) HPV nRNA E6/E7 Not Detected Not Detected [facility] Comment:Methodology: Transcr iption-Mediated AmplificationThis assay detects E6/E7 viral messenger RNA (mRNA) from 14high-risk HPV types (16,18,31,33,35,39,45,51,52,56,58,59,66,68).Cervical sources are required for HPV testing.If a vaginal source from a patient who has had atotal hysterectomy with removal of cervix wassubmitted, please contact the testing laboratoryfor alternative testing options.For additional information, please refer tohttp://education.[employer]/faq/ODW334n2(This link if provided for information/educational purposes only.)THIS TEST WAS PERFORMED AT:[employer] [place] [phone] MORRISON MD HPV mRNA E6/E7 [facility] HPV 16 RNA [facility] HPV 18/45 RNA [facility] 05/14/2023 05/15/2023 6:3 0 AM EDT Jinny Dillard MD LAB CYTOLOGY ORDERABL ES Final Result Performing Organization Address [facility]/ZIP Co de Phone Number [facility] [address] [place] [address] [phone] * Cologuard?? colon cancer screening (04/01/2023 8:30 AM EST) Cologuard Result Negative Negative 04/09/19 24 1:23 PM EST [employer] (CLIA #:[id number]) Comment: NEGATIVE TEST RESULT. A negative Cologuard result indicates a low likelihood that a colorectal cancer (CRC) or advanced adenoma (adenomatous polyps with more advanced pre-malignant features) ??is present. The chance that a person with a negative Cologuard test has a colorectal cancer is less than 1 in 1500 (negative predictive value >99.9%) or has an ??advanced adenoma is less than ??5.3% (negative predictive value 94.7%). These data are based on a prospective cross-sectional study of 10,000 individuals at average risk for colorectal cancer who were screened with both Cologuard and colonoscopy. (Chelle Wright al, N Engl J Med 2014;370(14):1286- 1297) The normal value (reference range) for this assay is negative. COLOGUARD RE-SCREENING RECOMMENDATION: Periodic colorectal cancer screening is an important part of preventive healthcare for asymptomatic individuals at average risk for colorectal cancer. ??Following a negative Cologuard result, the [place] Cancer Society and U.S. Multi-Society Task Force screening guidelines recommend a Cologuard re-screening interval of 3 years. References: [place] Cancer Society Guideline for Colorectal Cancer Screening: https://www.cancer.org/cancer/spxkc-qpiqab-chxmic/lzqhyvbhv-cmpegvcwn-zqgglua/ac s-rec ommendations.html.; Rizwan DK, Graciela CR, Reza AllenK, Colorectal Cancer Screening: Recommendations for Physicians and Patients from the U.S. Multi-Society Task Force on Colorectal Cancer Screening , Am J Gastroenterology 2017; 112:7029-2868. TEST DESCRIPTION: Composite algorithmic analysis of stool DNA-biomarkers with hemoglobin immunoassay. ?? Quantitative values of individual biomarkers are not reportable and are not associated with individual biomarker result reference ranges. Cologuard is intended for colorectal cancer screening of adults of either sex, 45 years or older, who are at average-risk for colorectal cancer (CRC). Cologuard has been approved for use by the U.S. FDA. The performance of Cologuard was established in a cross sectional study of average-risk adults aged 50-84. Cologuard performance in patients ages 45 to 49 years was estimated by sub-group analysis of near-age groups. Colonoscopies performed for a positive result may find as the most clinically significant lesion: colorectal cancer [4.0%], advanced adenoma (including sessile serrated polyps greater than or equal to 1cm diameter) [20%] or non- advanced adenoma [31%]; or no colorectal neoplasia [45%]. These estimates are derived from a prospective cross-sectional screening study of 10,000 individuals at average risk for colorectal cancer who were screened with both Cologuard and colonoscopy. (Chelle Love, N Engl J Med 2014;370(14):0977-1738.) Cologuard may produce a false negative or false positive result (no colorectal cancer or precancerous polyp present at colonoscopy follow up). A negative Cologuard test result does not guarantee the absence of CRC or advanced adenoma (pre-cancer). The current Cologuard screening interval is every 3 years. (Citizen Of [place] Cancer Society and U.S. Multi-Society Task Force). Cologuard performance data in a 10,000 patient pivotal study using colonoscopy as the reference method can be accessed at the following location: www.[employer]/results. Additional description of the Cologuard test process, warnings and precautions can be found at www.[employer]. Stool specimen (specimen) Rectal contents / Unknown 04/01/2023 8:30 AM EST 04/02/2023 1:47 PM EST Jinny Dillard MD LAB MOLECULAR DIAGNOS TICS ORDERABLES Final Result [employer] (CLIA #:[id number]) [place] [address], from Last 3 Months or Most Recently Relevant to Health Maintenance Insurance [employer] Care Teams Digital Solution Architect Relationship Specialty Start Date End Date Jinny Guzman MD [address] [place] [phone] PCP - General Family Medicine 05/29/18
--- OUTSIDE RECORDS SUMMARY | 2024-05-11 11:28 | XMS_ITS | Encounter Summary ---
Author Organization [employer] Address [address] [facility] 7t [place] [address] Care Team Providers Care Financial Services Agent Name Role Phone Jinny Guzman MD Primary Care Provide r Encounter Details Date Type Department Care Team (Late st Contact Info) Description 05/11/2024 Orders Only [facility] [address] [place] [address] Jinny Guzman MD [address] [place], [place] [phone] Social History Tobacco Use Types Packs/Day Years Used Date Smoking Tobacco: Never Passive Smoke Exposure: Never Smokeless Tobacco: Never Alcohol Use Standard Drinks/Week Comments Never 0 [...] not to disclose 2021 10:18 AM EDT documented as of this encounter Plan of Treatment Upcoming Encounters Date Type Department Care Team ([facility] st Contact Info) Description 05/11/2024 3:30 PM EDT Office Visit [facility] [address] [place] [phone] Jinny Guzman MD [address] [place] [address] documented as of this encounter Procedures Procedure Name Priority Date/Time Associated Diagnosis Comments BI MAMMOGRAM DIAGNOSTIC TOMOSYNTHESIS BILATERAL Routine 05/11/2024 10:00 AM EDT documented in this encounter Results * BI Mammogram Diagnostic Tomosynthesis Bilateral (05/11/2024 10:00 AM EDT) Anatomical Region Laterality Modality Breast Bilateral Mammography 05/11/2024 10:0 0 AM EDT Narrative 05/11/2024 11:16 AM EDT ? [facility] [employer] ? [address] ?[place] [address] ?[phone] ? Mammography Report ? Signed ? Patient: Francis,Luz Maria ?MR#: [id number] ?? 08 ? : 1960 ?Acct:[id number] ? Age/Sex: 64 / F ?ADM Date: 04/01/25 ? Loc: HO.MAMMO ? Attending Dr: Jinny Dillard MD ? Ordering Physician: Jinny Guzman MD ?Results: ?? 2Benign Findings ? Date of Service: 05/11/24 ?Follow Up: 1 Year From Orig ?? inal Mammogram ? Procedure(s): MM tomosynthesis diagnostic BI ?? Accession Number(s): [id number] ? cc: Jinny Guzman MD ? EXAMINATION: [...] ??Dilia Hernández DO ??05/11/2024 11:13 AM EDT ? Dictated By: ?Dilia Hernández DO ? Signed By: ?<Electronically signed by Dilia Hernández, in OV> ? 05/11/24 1113 ? DD/ 1000 ? TD/TT: 05/11/24 1019 ? Reception Clerk: ? Procedure Note Nate, Image - 05/11/2024 [facility] [address] [place] [address] Mammography Report Signed Patient: Raleigh Blanco#: [id number] 08 : 1960Acct:[id number] Age/Sex: 64 / FADM Date: 05/11/24 Loc: HO.MAMMO Attending Dr: Jinny Dillard MD Ordering Physician: Jinny Guzman MDResults: 2Benign Findings Date of Service: 05/11/24Follow Up: 1 Year From Orig inal Mammogram Procedure(s): MM tomosynthesis diagnostic BI Accession Number(s): [id number] cc: Jinny Guzman MD EXAMINATION: MM DIAGNOSTIC [...] 05/11/24 1113 DD/ 1000 TD/TT: 05/11/24 1019 Reception Clerk: us Jinny Dillard MD IMG BI PROCEDURES Fin al Result documented in this encounter Visit Diagnoses Not on filedocumented in this encounter Additional Health Concerns Assessment Noted Time PHQ-9 Depression Total Score: 0 08/26/19 24 9:44 AM EDT documented as of this encounter Care Teams Financial Services Agent Relationship Specialty Start Date End Date Jinny Guzman MD [address] [place] [phone] PCP - General Family Medicine 05/29/18 documented as of this encounter
== END 2024-05-11 09:49 | disposition home or self-care (01) ==
LOC: HO.MAMMO 09:48
PROVIDERS: PCP Internal Medicine; Visit Provider Internal Medicine
DX: R92.2 Inconclusive mammogram (principal)
CPT/HCPCS: 76642; 77062; 77066

== ENCOUNTER → 2024-05-11 10:00 | Outpatient (BNV) | payer MEDICAID, SELFPAY | PROVIDERS: PCP Internal Medicine; Visit Provider Internal Medicine | DX: N63.23 Unspecified lump in the left breast, lower outer quadrant (principal) | CPT/HCPCS: 76642; 77062; 77066 ==

== ENCOUNTER 2025-01-04 09:19 | Outpatient (REF) | payer MEDICAID, SELFPAY ==
--- OUTSIDE RECORDS SUMMARY | 2025-01-04 09:30 | XMS_ITS | Encounter Summary ---
Author Organization [employer] Address [address] [facility] 7t [place] [address] Care Team Providers Care Acquisition Marketing Coordinator Name Role Phone Jinny Guzman MD Primary Care Provide r Reason for Referral * Consultation (Routine) - Closed Specialty Diagnoses / Procedures Referred By Abdirahman veras Referred To Contact Physical Therapy Diagnoses Vertigo Jinny Guzman MD [address] [place] [address] Phone: tel: fax: [facility] Physical Therapy [address] [place] [address] Phone: tel: fax: Referral ID Status Reason Start Date Expiration Date V isits Requested Visits Authorized [id number] Closed Specialty Services Required 01/04/2025 01/04/2026 1 1 * Imaging (Routine) - Pending Review Specialty Diagnoses / Procedures Referred By Contac t Referred To Contact Radiology Diagnoses Asymptomatic postmenopausal state Procedures BD DEXA Axial Jinny Guzman MD [address] [place] [address] Phone: tel: fax: Referral ID Status Reason Start Date Expiration Date V isits Requested Visits Authorized [id number] Pending Review 01/04/2025 01/04/2026 1 1 Encounter Details Date Type Department Care Team (Latest Contact Info) Description 01/04/2025 9:30 AM EST Office Visit [facility] [address] [facility] [place] [address] Jinny Guzman MD [address] [facility] [place] [address] Asymptomatic postmenopausal state; Vertigo Social History Tobacco Use Types Packs/Day Years Used Date Smoking Tobacco: Never Passive Smoke Exposure: Never Smokeless Tobacco: Never Alcohol Use Standard Drinks/Week Comments Never 0 (1 standard drink = 0.6 oz pur e alcohol) Depression Answer Date Recorded Patient Health Questionnaire-9 Score 0 05/11/2024 Patient Health Questionnaire-9 Score 0 05/11/2024 Last PHQ-9: Questionnaire Data Not on file 0 05/11/2024 Housing Stability Answer Date Recorded What is [...] the past 12 months, has t he [employer], gas, oil or water company threatened to shut off services in your home? No 08/26/2023 Depression Answer Date Recorded Patient Health Questionnaire-2 Score 0 05/11/2024 Internet Access Answer Date Recorded Internet Access Q1 Yes 08/29/2024 Internet Access Q2 Not on file 08/29/2024 Comments Unknown Sex and Gender Information Value Date Recorded Sex Assigned at Female 12/10/2021 10:18 AM EDT Legal Sex Female 10:18 AM EDT Gender Identity Female 12/10/2021 10:18 AM EDT Sexual Orientation Choose not to disclose 2021 10:18 AM EDT documented as of this encounter Last Filed Vital Signs Vital Sign Reading Time Taken Comments Blood Pressure 120/72 01/04/2025 9:42 AM EST Pulse 68 01/04/2025 9:42 AM EST Temperature 33.3 C (92 F) 01/04/2025 9:42 AM EST Respiratory Rate 18 01/04/2025 9:42 AM EST Oxygen Saturation 99% 01/04/2025 9:42 AM EST Inhaled Oxygen Concentration - - Weight 62.1 kg (137 lb) 01/04/2025 9:42 AM EST Height 160 cm (5' 3 ) 01/04/2025 9:42 AM EST Body Mass Index 24.27 01/04/2025 9:42 AM EST documented in this encounter Plan of Treatment Scheduled Orders Name Type Priority Associated Diagnoses Orde r Schedule BD DEXA Axial Imaging Routine Asymptomatic postmenopausal state Expected: 01/04/2025, Expires: 01/04/2026 Scheduled Referrals Name Type Priority Associated Diagnoses Orde r Schedule Referral to Physical Therapy Outpatient Referral Routine Vertigo Expected: 01/04/2025 (Approximate), Expires: 01/04/2026 documented as of this encounter Visit Diagnoses Diagnosis Asymptomatic postmenopausal state Vertigo Dizziness and giddiness documented in this encounter Additional Health Concerns Assessment Noted Time PHQ-9 Depression Total Score: 0 05/12/19 3:47 PM EDT documented as of this encounter Care Teams Acquisition Marketing Coordinator Relationship Specialty Start Date End Date Jinny Guzman MD [address] [place] [address] PCP - General Family Medicine 05/29/18 documented as of this encounter
--- OUTSIDE RECORDS SUMMARY | 2025-01-04 10:31 | XMS_ITS | Clinical Summary ---
Author Organization [employer] Address [address] [facility] 7t [place] [address] Care Team Providers Care Embroidery Machine Operator Name Role Phone Jinny Guzman MD Primary Care Provide r Allergies No known active allergies Medications omeprazole (PriLOSEC) [address] capsule Take 1 capsule by mouth. Everyday before a meal 7 Active acetaminophen (Tylenol 8 Hour) 650 [...] Once per day. 30 tablet 11 4 Active atorvastatin (Lipitor) 20 MG tabletIndications :Primary hypertension Take 1 tablet (20 mg) by mouth Once per day. 30 tablet 11 4 Active ketoconazole (NIZOral) 2 % shampoo APPLY TOPICALLY TWICE A WEEK DIRECTED 120 mL 1 4 Active ibuprofen 800 MG tabletIndications :Otitis of left ear Take 1 tablet (800 mg) by mouth every 8 (eight) hours. 20 tablet 5 Active amLODIPine (Norvasc) 2.5 MG tabletIndications :Primary hypertension TAKE 2 TABLETS BY MOUTH EVERY DAY 180 tablet 1 5 Active Active Problems Problem Noted Date Diagnosed Date Asymptomatic postmenopausal state 01/04/2025 Vertigo 01/04/2025 Weight loss 05/11/2024 Assessment & Plan (05/12/2024 1:51 PM EDT): Blood work will be ordered today patient will be contacted with results Otitis of left ear 05/11/2024 Benign paroxysmal positional vertigo due to bilateral [...] provided Primary hypertension 06/24/2022 Assessment & Plan (05/12/2024 1:50 PM EDT): Blood pressure seems to be under control I advised to continue with same medication and low-sodium diet Assessment & Plan (11/25/2023 4:08 PM EDT): [...] (06/24/2022 3:39 PM EDT): Please refer to [facility] Colon cancer screening 06/24/2022 Pain in female pelvis 01/22/2022 Loss of hair 01/22/2022 Dizziness 01/22/2022 Complex cyst of left ovary 01/22/2022 History of cholecystectomy 09/08/2012 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 Anxiety state 07/01/2011 Alopecia 07/01/2011 Encounters Date Type Department Care Team Description 01/04/2025 9:30 AM EST Office Visit [facility] [address] [place] [phone] Jinny Guzman MD Asymptomatic postmenopausal state; Vertigo 01/04/2025 Travel 01/03/2025 Telephone [facility] [address] [place] [phone] Jinny Guzman MD Chart Prep 12/27/2024 Patient Outreach [facility] [address] [place] [phone] Jinny Guzman MD Pre-visit Planning (SDOH screening completed on 08/23/2024) 11/17/2024 Refill [facility] [address] [place] [phone] Jinny Guzman MD Primary hypertension 10/21/2024 Telephone [facility] [address] [place], [place] [phone] Jinny Guzman MD NOV RECALL from Last 3 Months Immunizations Immunization Administration Dates Next Due Tdap 09/05/2022 Zoster, [...] is your housing situation today? I have maxineana williamson 08/26/[address] you [...] Mass Index 24.27 01/04/2025 9:42 AM EST Plan of Treatment Health Maintenance Due Date Last Done Comments CT Colonography 1960 Colonoscopy 1960 FIT 1960 Sigmoidoscopy 1960 Alcohol/Substance Use Screening 1972 Hepatitis C Screening 12/31/1977 Pneumococcal Vaccine: 50+ Years (1 of 1 - PCV) 12/31/2009 FOBT 04/01/2024 04/01/2023 COVID-19 Vaccine ( season) 2024 06/19/2020, 05/25/2020 Influenza Vaccine (#1) 2024 Depression Screening 05/11/2025 05/11/2024, 05/12/19 Mammogram 05/11/2025 05/11/2024, 04/0 02/2024, 11/10/2023, Additional history exists SDOH Screening 08/23/2025 08/23/2024 Tobacco Screening 01/04/2026 01/04/2025 Colorectal Cancer Screening 04/01/2026 FIT DNA/Cologuard 04/01/2026 [...] patient's age to complete this topic Meningococcal B Vaccine Aged Out No l onger eligible based on patient's age to complete [...] TOMOSYNTHESIS BILATERAL Routine 05/11/2024 10:00 AM EDT LIPID PANEL, STANDARD Routine 05/27/2023 8:45 AM EDT Primary hypertension IMAGE-GUIDED PAP W/AGE BASED SCR,W/CT/NG/TRICH Routine 05/14/2023 10:55 AM EDT Encounter for Papanicolaou smear for cervical cancer screening HPV MRNA E6/E7 REFLEX TO HPV 16, 18/45 Routine 05/14/2023 12:00 AM EDT LAB COLOGUARD COLON CANCER SCREEN Routine 04/01/2023 8:30 AM EST Colon cancer screening from Last 3 Months or Most Recently Relevant to Health Maintenance Results * BI Mammogram Diagnostic Tomosynthesis Bilateral (05/11/2024 10:00 AM EDT) Anatomical Region Laterality Modality Breast Bilateral Mammography 05/11/2024 10:0 0 AM EDT Narrative 05/11/2024 11:16 AM EDT [facility] [address] [place], [place] [address] Mammography Report Signed Patient: Luz aMria Blanco MR#: [id number] [birth year] : 1960 Acct:[id number] Age/Sex: 64 / F ADM Date: 05/11/24 Loc: HO.MAMMO Attending Dr: Jinny Dillard MD Ordering Physician: Jinny Guzman MD Results: 2Benign Findings Date of Service: 05/11/24 Follow Up: 1 Year From Orig ina Mammogram Procedure(s): MM tomosynthesis diagnostic BI Accession Number(s): [id number] cc: Jinny Guzman MD EXAMINATION: MM DIAGNOSTIC [...] 05/11/24 1113 DD/ 1000 TD/TT: 05/11/24 1019 Gas Plant Repairer: Procedure Note Donotdakotainterpreter, Image - 05/21/2024 [facility] [address] [place] [address] Mammography Report Signed Patient: Raleigh Blanco#: [id number] [birth year] : 1960Acct:[id number] Age/Sex: 64 / FADM Date: 05/11/24 Loc: HO.MAMMO Attending Dr: Jinny Dillard MD Ordering Physician: Jinny Guzman MDResults: 2Benign Findings Date of Service: 05/11/24Follow Up: 1 Year From Orig inal Mammogram Procedure(s): MM tomosynthesis diagnostic BI Accession Number(s): [id number] cc: Jinny Guzman MD EXAMINATION: MM DIAGNOSTIC [...] 05/11/24 1113 DD/ 1000 TD/TT: 05/11/24 1019 Gas Plant Repairer: us Jinny Dillard MD IMG BI PROCEDURES Luke nighat Result - Final * (ABNORMAL) Lipid Panel, Standard (05/27/2023 8:45 AM EDT) Triglycerides 169(H) <150 mg/dL [facility] Comment:Desirable Triglyceri de: less than 150 mg/dLBorderline High Triglyceride 150-199 mg/dLHigh Triglyceride: 200-499 mg/dLVery High Triglyceride: greater than or equal to 5OO mg/dL Cholesterol 215(H) <200 mg/dL [facility] Comment:Desirable Cholestero l: less than 200 mg/dLBorderline High Cholesterol: 200-239 mg/dLHigh Cholesterol: greater than 239 mg/dL LDL Cholesterol Calculated 129(H) <100 mg/dL [facility] Comment:Desirable LDL: less than 100 mg/dLNear Optimal/Above Optimal LDL: 110- 129 mg/dLBorderline High LDL: 130-159 mg/dLHigh LDL: 160-189 mg/dLVery High LDL: greater than or equal to 190 mg/dL HDL Cholesterol 53 >40 mg/dL [facility] Comment:Desirable HDL: great er than 40 mg/dL Note: This HDL assay may give artificially low results in patients with liver disease. Blood Venous blood specimen / Unknown 05/27/2023 8:45 AM EDT 05/27/2023 8:45 AM EDT Jinny Dillard MD LAB BLOOD ORDERABLES Final Result Performing Organization Address [facility] Co de Phone Number [facility] [address] [place] [phone] * Image-Guided Pap with Age-Based Screening??with CT/NG,??Trichomonas (05/14/2023 10:55 AM EDT) Trichomonas (NAAT) NOT DETECTED NOT DETECTED [facility] Comment:The analytical perfo rmance characteristics of thisassay have been determined by [employer]. Themodifications have not been cleared or approved bythe FDA. This assay has been validated pursuant to theCLIA regulations and is used for clinical purposes.For additional information, please refer tohttp://education.[employer]/faq/Trichomonastma(This link is being provided for information/educational purposes only.)THIS TEST WAS PERFORMED AT:[facility] [place] [phone] MORRISON MD CTNG Ref Lab NOT DETECTED NOT DETECTED [facility] NG Ref Lab NOT DETECTED NOT DETECTED [facility] Pap Vial Vaginal structure / Unknown 05/14/2023 10:55 AM EDT 05/15/2023 6:30 AM EDT us Jinny Dillard MD LAB CYTOLOGY ORDERABL ES Final Result Performing Organization Address [facility] Co de Phone Number [facility] [address] [place] [phone] * HPV mRNA E6/E7 w/Reflex to HPV Genotypes 16, 18/45 (05/14/2023 12:00 AM EDT) HPV nRNA E6/E7 Not Detected Not Detected [facility] Comment:Methodology: Transcr iption-Mediated AmplificationThis assay detects E6/E7 viral messenger RNA (mRNA) from 14high-risk HPV types (16,18,31,33,35,39,45,51,52,56,58,59,66,68).Cervical sources are required for HPV testing.If a vaginal source from a patient who has had atotal hysterectomy with removal of cervix wassubmitted, please contact the testing laboratoryfor alternative testing options.For additional information, please refer tohttp://education.[employer]/faq/TFO680e3(This link if provided for information/educational purposes only.)THIS TEST WAS PERFORMED AT:[facility] [place] [phone] MORRISON MD HPV mRNA E6/E7 TNP [facility] HPV 16 RNA [facility] HPV 18/45 RNA [facility] 05/14/2023 05/15/2023 6:3 0 AM EDT Jinny Dillard MD LAB CYTOLOGY ORDERABL ES Final Result [facility] [address] [place] [phone] * Cologuard?? colon cancer screening (04/01/2023 8:30 AM EST) Cologuard Result Negative Negative 04/09/19 24 1:23 PM EST [employer] [facility] (CLIA #:[id number]) Comment: NEGATIVE TEST RESULT. A negative Cologuard result indicates a low likelihood that a colorectal cancer (CRC) or advanced adenoma (adenomatous polyps with more advanced pre-malignant features) is present. The chance that a person with a negative Cologuard test has a colorectal cancer is less than 1 in 1500 (negative predictive value >99.9%) or has an advanced adenoma is less than 5.3% (negative predictive value 94.7%). These data are based on a prospective cross-sectional study of 10,000 individuals at average risk for colorectal cancer who were screened with both Cologuard and colonoscopy. (Chelle Wright al, N Engl J Med 2014;370(14):4646-9742) The normal value (reference range) for this assay is negative. COLOGUARD RE-SCREENING RECOMMENDATION: Periodic colorectal cancer screening is an important part of preventive healthcare for asymptomatic individuals at average risk for colorectal cancer. Following a negative Cologuard result, the [place] Cancer Society and U.S. Multi-Society Task Force screening guidelines recommend a Cologuard re-screening interval of 3 years. References: [place] [employer] Society Guideline for Colorectal Cancer Screening: https://www.cancer.org/cancer/cxlym-qtvnrw-vjurvt/nvqbxgwke-nnmxubzpx-ukvgvpo/ac s-rec ommendations.html.; Rizwan DK, Graciela CR, Reza AllenK, Colorectal Cancer Screening: Recommendations for Physicians and Patients from the U.S. Multi-Society Task Force on Colorectal Cancer Screening , Am J Gastroenterology 2017; 112:3373-2446. TEST DESCRIPTION: Composite algorithmic analysis of stool DNA-biomarkers with hemoglobin immunoassay. Quantitative values of individual biomarkers are not [...] were screened with both Cologuard and colonoscopy. (Chelel Wright al, N Engl J Med 2014;370(14):9977-7996.) Cologuard may produce a false negative or false positive result (no colorectal cancer or precancerous polyp present at colonoscopy follow up). A negative Cologuard test result does not guarantee the absence of CRC or advanced adenoma (pre-cancer). The current Cologuard screening interval is every 3 years. ([place] Cancer Society and U.S. Multi-Society Task Force). Cologuard performance data in a 10,000 patient pivotal study using colonoscopy as the reference method can be accessed at the following location: www.[employer]/results. Additional description of the Cologuard test process, warnings and precautions can be found at www.cologYouCastrrd.com. Stool specimen (specimen) Rectal contents / Unknown 04/01/2023 8:30 AM EST 04/02/2023 1:47 PM EST Jinny Dillard MD LAB MOLECULAR DIAGNOS TICS ORDERABLES Final Result [facility] (CLIA #:[id number]) [address] [place] [address], from Last 3 Months or Most Recently Relevant to Health Maintenance Insurance [place] [address] [place] [phone] Care Teams Embroidery Machine Operator Relationship Specialty Start Date End Date Jinny Guzman MD [address] [place] [address] PCP - General Family Medicine 05/29/18
--- OUTSIDE RECORDS SUMMARY | 2025-01-04 10:31 | XMS_ITS | Encounter Summary ---
Author Organization [employer] Address [address] [facility] [address] [place] [address] Care Team Providers Care Knife Edger Name Role Phone Jinny Guzman MD Primary Care Provide r Encounter Details Date Type Department Care Team (Latest Contact Info) Description 01/04/2025 Travel Social History Tobacco Use Types Packs/Day Years [...] as of this encounter Plan of Treatment Not on file documented as of this encounter Visit Diagnoses Not on filedocumented in this encounter Additional Health Concerns Assessment Noted Time PHQ-9 Depression Total Score: 0 05/12/19 25 3:47 PM EDT documented as of this encounter Care Teams Knife Edger Relationship Specialty Start Date End Date Jinny Guzman MD [address] [place] [address] PCP - General Family Medicine 05/29/18 documented as of this encounter
--- OUTSIDE RECORDS SUMMARY | 2025-01-04 10:31 | XMS_ITS | Encounter Summary ---
Author Organization [employer] Address [address] [facility] [address] [place] [address] Care Team Providers Care Rolling Chair Pusher Name Role Phone Jinny Guzman MD Primary Care Provide r Reason for Visit * Reason Onset Date Comments Chart Prep 01/03/2025 Encounter Details Date Type Department Care Team ([facility] st Contact Info) Description 01/03/2025 Telephone [facility] [address] [place] [address] Jinny Guzman MD [address] [place] [address] Chart Prep Social History Tobacco Use Types Packs/Day Years [...] AM EDT documented as of this encounter Miscellaneous Notes * Telephone Encounter - Valeria Otero MA - 01/03/2025 1:27 PM EST Chart Prep Labs: Spoke with patient will have lab done tomorrow morning before visit. Images: done Referrals: not applicable Vaccines due: Covid, Flu, and PCV20 Screenings: Hepatitis C Screening Overdue care gaps: SBIRT, PHQ-9, ARUNA-7, and Disability screen documented in this encounter Plan of Treatment Not on file documented as of this encounter Visit Diagnoses Not on filedocumented in this encounter Additional Health Concerns Assessment Noted Time PHQ-9 Depression Total Score: 0 05/12/19 25 3:47 PM EDT documented as of this encounter Care Teams Rolling Chair Pusher Relationship Specialty Start Date End Date Jinny Guzman MD [address] [place] [address] PCP - General Family Medicine 05/29/18 documented as of this encounter
[2025-01-04 11:49] LABS: MANUAL DIFF FLAG NO
[2025-01-04 11:56] LABS: Hematocrit 39.0 % (37.0-47.0); Hemoglobin 12.9 g/dl (12.0-16.0); Imm Gran Abs Auto 0.02 X10*3/uL (0.00-0.03); Imm Gran Pct Auto 0.4 % (0.0-0.4); Lymphocytes Absolute Auto 2.0 X10*3/uL (1.2-4.9); Mean Corpuscular HGB Conc 33.1 g/dl (31.0-35.0); Mean Corpuscular Hemoglobin 30.6 pg (27.0-33.0); Mean Corpuscular Volume 92.6 fL (80.0-98.0); NRBC Abs Auto 0.000 X10*3/uL (0.0-0.012); NRBC Pct Auto 0.0 /100WBC (0.0-0.2); Platelet Count 252 X10*3/uL (160-400); Red Blood Count 4.21 X10*6/uL (4.20-5.50); White Blood Count 5.0 X10*3/uL (4.8-10.8)
[2025-01-04 12:19] LABS: Alanine Aminotransferase 26 U/L (0-31); Albumin Level 4.5 g/dL (3.5-5.0); Alkaline Phosphatase 76 U/L (39-117); Anion Gap 9 (12-20); Aspartate Amino Transferase 29 U/L (5-31); Blood Urea Nitrogen 16 mg/dL (9-16); Calcium 9.3 mg/dL (8.4-10.2); Carbon Dioxide 27 mmol/L (22-29); Chloride 108 mmol/L (96-108); Cholesterol 214 mg/dL (<200); Estimated Glomerular Filt Rate > 60; HDL Cholesterol 63 mg/dL (>40); Potassium 3.6 mmol/L (3.3-5.1); Sodium 140 mmol/L (135-145); Total Protein 7.4 g/dL (6.5-8.0); Triglycerides 110 mg/dL (<150)
[2025-01-04 12:35] LABS: HBS Num1 0.49 mIU/mL (0-7.99); HBc Num1 0.07 S/CO (0.00-0.79); HBsAGNum1 0.44 S/CO (0.00-0.99); HIV Num 1 0.07 S/CO (0.00-0.99); Hepatitis A Antibody IgM 0.30 Index (0-0.79); Hepatitis B Surface Antigen Negative (Negative); ~HepC Num1 0.16 S/CO (0.00-0.79); ~Hepatitis A Antibody IgM Nonreactive (Nonreactive); ~Hepatitis B Surface Antibody NONREACTIVE (Nonreactive); ~Hepatitis C Antibody Nonreactive (Nonreactive)
[2025-01-10 13:54] LABS: Anti Nuclear Antibody Screen POSITIVE (NEGATIVE); Anti Nuclear Antibody Titer 1:640 titer
== END 2025-01-04 09:20 | disposition home or self-care (01) ==
LOC: HO.HHCL 09:19
PROVIDERS: PCP Internal Medicine; Visit Provider Internal Medicine
DX: Z11.4 Encounter for screening for human immunodeficiency virus [HIV] (principal); Z11.59 Encounter for screening for other viral diseases; Z01.84 Encounter for antibody response examination; R63.4 Abnormal weight loss
CPT/HCPCS: 36415; 80053; 80061; 82306; 83036; 84443; 85025; 86038; 86039; 86704; 86706; 86709; 86803; 87340; 87389